=== PATIENT | female | born 1945 | race Caucasian/White ===

== ENCOUNTER 2020-11-30 19:33 | Inpatient (IN) | payer MEDICARE, MEDICAID, SELFPAY ==
[2020-11-30] VITALS (12 sets, daily range): BP systolic 102–128; BP diastolic 45–59; PULSE 71–81; RESP 16–20; TEMP 36.1–36.9; O2SAT 95–100; BMI 18.4
--- NOTE | 2020-11-30 19:43 | ED_ITS ---
HPI - Abdominal Pain General: Chief Complaint: Abdominal Pain Stated Complaint: abd pain/has colon cancer Time Seen by Provider: 11/30/20 19:38 Source: patient Mode of arrival: ambulatory Limitations: no limitations History of Present Illness: HPI narrative: 75-year-old female who has a history of colon cancer and had a colectomy done 2 months ago. She has an appointment with oncology at [place] tomorrow. She states she has been having pain for months. She states her pain is diffuse. She denies any vomiting or diarrhea. She denies any worsening improving factors. States pain is sharp in nature and rates it a 2 out of 10 currently Associated Symptoms: Denies chills, dysuria and fever(s) Review of Systems Const: Denies: fever(s), chills, body aches or change in appetite Eyes: Denies: blurry vision or eye discomfort ENMT: Denies: throat pain or dental pain Card: Denies: chest pain Resp: Denies: dyspnea GI: Reports: abdominal pain : Denies: dysuria Musc: Denies: neck pain or back pain Skin/Breast: Denies: rash Neuro: Denies: headache(s) Psych: Denies: depression Tunde/Lymph: Denies: easy bruising All/Imm: Denies: urticaria Physical Exam Const: COMMON NORMALS: no acute distress, patient oriented x3 and healthy appearing HENMT: COMMON NORMALS: normocephalic and atraumatic HEAD & SCALP: normocephalic and atraumatic Eye: COMMON NORMALS: Equal, round and reactive pupils present and EOMs intact bilaterally PUPIL: Yes Equal, round and reactive pupils present Neck/C-Spine: COMMON NORMALS: full ROM and supple Chest: COMMONS NORMALS: normal inspection of the chest and normal palpation of entire chest wall Resp: COMMON NORMALS: normal respiratory effort, No retractions, No use of accessory muscles and clear to auscultation bilaterally AUSCULTATION: clear to auscultation bilaterally Cardio: COMMON NORMALS: regular rate, regular rhythm and No murmurs present (Cardio) RATE: regular rate RHYTHM: regular rhythm GI: COMMON NORMALS: Normal to inspection, nondistended, normoactive bowel sounds present, Soft to palpation, non-tender and no masses PALPATION: Yes Soft to palpation OTHER: Colostomy in place no tenderness Extremity: COMMON NORMALS: normal to inspection and full ROM Neuro: COMMON NORMALS: patient oriented x3, moves all extremities and no focal motor deficits Psych: COMMON NORMALS: mental status grossly normal, Normal thought process present and cooperative THOUGHT PROCESS: Normal thought process present Skin: COMMON NORMALS: no rashes or lesions noted and no wounds GENERAL SKIN EXAM: no rashes or lesions noted Course Vital Signs: Vital signs: Vital Signs Temperature 97.6 F 11/30/20 23:39 Pulse Rate 71 11/30/20 23:39 Respiratory Rate 18 11/30/20 23:39 Blood Pressure 102/52 11/30/20 23:39 Pulse Oximetry 96 11/30/20 23:39 MDM - Abdominal Pain MDM Narrative: Medical decision making narrative: Katalina presents here with anemia along with a small bowel obstruction. She has a history of colon cancer and had a fairly recent colectomy. Did place an NG tube I spoke to hospitalist along with surgeon and will admit. Patient's vital signs have been stable here. Lab Data: Labs: Lab Results 11/30/20 11/30/20 11/30/20 Range/Units 20:07 20:07 20:34 WBC 17.9 H (4.0-10.0) 10^3/ uL RBC 3.06 L (4.1-5.3) 10^6/u L Hgb 6.5 L* (11.5-15.3) g/dL Hct 22.9 L (37.0-47.0) % MCV 74.8 L (81-99) fL MCH 21.2 L (28.0-34.0) pg MCHC 28.4 L (30.0-36.0) g/dL RDW 15.6 H (12.1-15.1) % Plt Count 478 H (130-400) 10^3/c mm MPV 9.0 (7.4-10.4) fL Neut % (Auto) 83.5 % Lymph % (Auto) 11.7 % [place] % (Auto) 4.1 % Eos % (Auto) 0.0 % Baso % (Auto) 0.2 % Neut # (Auto) 14.92 H (1.8-7.7) 10^3/u L Lymph # (Auto) 2.1 (0.8-4.8) 10^3/u L [place] # (Auto) 0.7 (0.2-0.9) 10^3/u L Eos # (Auto) 0.0 (0.0-0.8) 10^3/u L Baso # (Auto) 0.0 (0.0-0.1) 10^3/u L Nucleated RBC % (a uto) 0 % Nucleated RBCs # 0.0 /100WBC Sodium 132 L (136-145) mmol/L Potassium 4.6 (3.5-5.1) mmol/L Chloride 97 L (98-107) mmol/L Carbon Dioxide 19 L (22-29) mmol/L Anion Gap 20.6 H (5-19) BUN 22 (8-23) mg/dL Creatinine 1.1 H (0.5-0.9) mg/dL GFR Calculation Not Reportable Glucose 170 H (65-115) mg/dL Calculated Osmolal ity 281 L (285-295) mOsm/k g Calcium 9.3 (8.5-10.5) mg/dL Total Bilirubin 0.5 (0.15-1.2) mg/dL AST 19 (0-32) U/L ALT 14 (0-33) U/L Alkaline Phosphata se 102 (35-105) IU/L Total Protein 6.7 (6.6-8.7) g/dL Albumin 3.7 (3.5-5.2) g/dL Globulin 3.0 (1.3-4.6) g/dL Lipase 34 (13-60) U/L Blood Type B Positive Rho(D) Type Positive Antibody Screen Negative Crossmatch See Detail Imaging Data ^: CT Abd/Pel: Attestation: I personally reviewed and interpreted this imaging study as follows: Radiologist's impression: [facility] [address] [facility] [place] [address] CT Scan Report Signed Patient: Katalina Ann Unit #: [id number] : 1945 Age/Sex: 75 / F ADM Date: 11/30/20 Loc: ER Room/Bed: Attending Dr: Ordering Provider/Ordering MD: Woody Stephenson MD Date of Service: 11/30/20 Procedure(s): CT abdomen pelvis w con* [id number] Accession Number(s): [id number] Report Number: [id number] PROCEDURE INFORMATION: Exam: CT Abdomen And Pelvis With Contrast Exam date and time: 11/30/2020 8:37 PM Age: 75 years old Clinical indication: Nausea and vomiting; Abdominal pain; Localized; Lower; Prior surgery; Surgery type: Colostomy; Patient HX: Low abdomen pain with n/v. ; Additional info: Abd pain TECHNIQUE: Imaging protocol: Computed tomography of the abdomen and pelvis with intravenous contrast. Radiation optimization: All CT scans at this facility use at least one of these dose optimization techniques: automated exposure control; mA and/or kV adjustment per patient size (includes targeted exams where dose is matched to clinical indication); or iterative reconstruction. Contrast material: OMNI 300; Contrast volume: 75 ml; Contrast route: INTRAVENOUS (IV); COMPARISON: No relevant prior studies available. RADIATION DOSE METRICS: Total DLP (mGy-cm): 212.96 FINDINGS: Lungs: No significant abnormaility demonstrated. Mediastinal space: There is a large hiatal hernia present. Approximately half of the stomach is present within the hernia. The portion of the stomach within the hernia appears dilated. Liver: The liver is unremarkable in appearance. Gallbladder and bile ducts: There is sludge versus noncalcified gallstones in the dependent portion of the gallbladder. No associated biliary dilatation. Pancreas: The pancreas is normal in appearance. No pancreatic duct dilatation. Spleen: The spleen is normal in size and appearance. Adrenal glands: The adrenal glands appear within normal limits. Kidneys and ureters: Atrophy of the left kidney. There is a left percutaneous nephrostomy catheter present. No hydronephrosis. Left percutaneous nephrostomy noted. The right kidney and ureter are unremarkable. Stomach and bowel: Status post distal colectomy and colostomy. Multiple dilated small bowel loops with air-fluid levels. The distal small bowel has an empty, decompressed appearance. Findings are consistent with small bowel obstruction. No ischemic change or perforation noted. The exact point of obstruction is not identified. Appendix: No evidence of appendicitis. Intraperitoneal space: Mild ascites in the pelvis. Vasculature: The aorta is atherosclerotic. No aortic aneurysm. Lymph nodes: No pathologically enlarged lymph nodes are demonstrated. Urinary bladder: The urinary bladder is unremarkable in appearance. Reproductive: Heterogeneous, myomatous uterus noted. Bones/joints: No acute osseous abnormality. Soft tissues: Left mid abdominal colostomy. CT/CT abdomen pelvis w con* [id number] IMPRESSION: 1. Status post distal colectomy and colostomy. 2. Multiple dilated small bowel loops with air-fluid levels. The distal small bowel has an empty, decompressed appearance. Findings are consistent with small bowel obstruction. No ischemic change or perforation noted. 3. Mild ascites in the pelvis. 4. There is sludge versus noncalcified gallstones in the dependent portion of the gallbladder. No associated biliary dilatation. Discharge Plan Discharge Patient Disposition: Admitted As Inpatient Admit Provider: Disha Myrick Clinical Impression: Small bowel obstruction, Anemia Condition: Stable Coding Level of Care Code ED Pressure Controller for Chg Fwd Exam Comprehensive
[2020-11-30] MEDS: morphine 4 mg/mL SDV 1 mL IVP (20:07)
[2020-11-30] MEDS: ondansetron 2 mg/ML SDV 2 mL 4 MG IVP (20:08)
[2020-11-30 20:12] LABS: Basophils % 0.2 %; Hematocrit 22.9 % (37.0-47.0); Lymphocytes # 2.1 10^3/uL (0.8-4.8); Lymphocytes % 11.7 %; Mean Corpuscular HGB Conc 28.4 g/dL (30.0-36.0); Mean Corpuscular Hemoglobin 21.2 pg (28.0-34.0); Mean Corpuscular Volume 74.8 fL (81-99); Monocytes # 0.7 10^3/uL (0.2-0.9); Monocytes % 4.1 %; Neutrophils # 14.92 10^3/uL (1.8-7.7); Neutrophils % 83.5 %; Nucleated Red Blood Cells % 0 %; Platelet Count 478 10^3/cmm (130-400); Red Blood Count 3.06 10^6/uL (4.1-5.3); Red Cell Distribution Width 15.6 % (12.1-15.1); White Blood Count 17.9 10^3/uL (4.0-10.0)
[2020-11-30 20:18] LABS: Hemoglobin 6.5 g/dL (11.5-15.3)
[2020-11-30 20:33] LABS: Alanine Aminotransferase 14 U/L (0-33); Albumin Level 3.7 g/dL (3.5-5.2); Alkaline Phosphatase 102 IU/L (35-105); Anion Gap 20.6 (5-19); Aspartate Amino Transferase 19 U/L (0-32); Blood Urea Nitrogen 22 mg/dL (8-23); Calcium 9.3 mg/dL (8.5-10.5); Carbon Dioxide 19 mmol/L (22-29); Chloride 97 mmol/L (98-107); Glucose 170 mg/dL (65-115); Lipase 34 U/L (13-60); Osmolality Calculated 281 mOsm/kg (285-295); Potassium 4.6 mmol/L (3.5-5.1); Sodium 132 mmol/L (136-145); Total Bilirubin 0.5 mg/dL (0.15-1.2); Total Protein 6.7 g/dL (6.6-8.7)
[2020-11-30] MEDS: iodixanol 320 mg/mL 100mL Btl IV (20:51)
--- NOTE | 2020-11-30 21:21 | PC.NURSE ---
stool is positive for blood.
[2020-11-30] MEDS: LORazepam 2 mg/mL INJ 1 mL 1 MG IVP (22:34)
[2020-11-30] MEDS: cetacaine Spray 5 gm Can 1 SPRAY TOPICAL (22:34)
[2020-12-01] VITALS (7 sets, daily range): BP systolic 107–152; BP diastolic 52–73; PULSE 67–87; RESP 16–18; TEMP 36.6–37.3; O2SAT 94–100
--- NOTE | 2020-12-01 01:16 | P.HP_ITS ---
Providers/Chief Complaint Admitting Physician: Disha Myrick MD Chief Complaint: abd pain/has colon cancer History of Present Illness Katalina Ann is a 75 year old female who presented to the emergency room chief complaint of abdominal pain according to the emergency room records. She did not report any nausea or vomiting. No description of change in stool output. Patient has previously been seen at [place]. She is had colectomy and colostomy placement as well as nephrostomy tube placement. She indicated that she has a history of colon cancer but has not yet started on any chemotherapy. Indicated she was due to see her oncologist in the next day or so but because of the increasing pain in her abdomen presented here. Work-up in the emergency room revealed multiple dilated loops of small bowel with air-fluid levels consistent with small bowel obstruction. NG tube was placed under sedation. She is continued to be sedate or tired since then. I am not able to get any history directly from her but I did review records that were obtained from hospital stay in September at [facility] where she also presented with small bowel obstruction. ER records indicate no report of any fevers, chills, dysuria. Vitals have been stable here thus far. ED provider discussed case with Dr. Zhang who has agreed to see Mrs. Ann in consultation. Review of Systems General: Reports: ROS unobtainable due to mental status Medications/Allergies Home Medications Medication Instructions Recorded Confirmed Last Taken Type acetaminophen [Tylenol Extra 1,000 mg PO PRN 11/30/20 11/30/20 11/30/20 18:00 History Strength] amlodipine [Norvasc] 5 mg PO DAILY@11/30/20 11/30/20 11/29/20 History esomeprazole magnesium [Nexium] 20 - 40 mg PO DAILY PRN 11/30/20 11/30/20 Unknown History levothyroxine 75 mcg PO DAILY@11/30/20 11/30/20 11/30/20 History pravastatin 40 mg PO DAILY@11/30/20 11/30/20 11/29/20 History Allergies Allergy/AdvReac Type Severity Reaction Status Date / Time Sulfa (Sulfonamide Allergy Unknown Verified 11/30/20 19:42 Antibiotics) PFSH Acute PFSH: Medical History (Updated 12/01/20 @ 03:49 by Disha Myrick MD) Cancer of sigmoid colon Hiatal hernia Hypercholesterolemia Hypertension Hypothyroidism Protein calorie malnutrition Surgical History (Updated 12/01/20 @ 03:36 by Disha Myrick MD) History of abdominal surgery Multiple, related to malignancy History of colectomy Distal Nephrostomy status (~09/2020) Left-sided, placed secondary to obstructive lesion Status post colostomy (~09/2020) Transverse loop, done secondary to obstructive lesion Family History (Updated 12/01/20 @ 01:28 by Disha Myrick MD) Denies family history of Cancer Social History (Updated 12/01/20 @ 01:28 by Disha Myrick MD) Smoking and tobacco status: never smoked Alcohol intake: never Marital status: Supplemental [facility] Information: Above medical, surgical, family and social history is taken from records at [facility]. Patient is sedated and not able to provide specific information herself presently. Vitals/I&O/Wt Last Vital Signs Temp 97.6 F 11/30/20 23:39 Pulse 72 12/01/20 00:27 Resp 16 12/01/20 00:27 BP 107/52 12/01/20 00:27 Pulse Ox 96 12/01/20 00:27 11/30/20 11/30/20 12/01/20 14:59 22:59 06:59 Intake Total 0 / 0 350 / 350 Balance 0 / 0 350 / 350 Weight last 48 hrs Weight 50.349 kg Physical Exam Const: OTHER: Sedate after recent Ativan for NG tube placement, thin build, no acute distress though looks chronically ill HENMT: OTHER: Bitemporal wasting noted, dry mucous membranes Eye: OTHER: Pale conjunctiva, reactive pupils Neck/C-Spine: OTHER: Supple Resp: OTHER: Clear to auscultation bilaterally, no rales, rhonchi or wheezes noted, no accessory muscle use noted Cardio: OTHER: Regular rate and rhythm, no murmurs gallops or rubs. Pulses equal throughout GI: OTHER: Abdomen soft, colostomy noted with reddish-brown stool, thin. Tinkles and rushes noted throughout. Mild distention in the left lower quadrant compared to the remainder of the abdomen. Does not appear to be significantly tender during my examination. : OTHER: Normal external genitalia Back/Pelvis: OTHER: Left-sided nephrostomy tube noted to be in place with leg bag attached Extremity: NARRATIVE EXTREMITY EXAM: Thin, muscle wasting noted, no pitting edema or cyanosis Neuro: OTHER: Face symmetric, DTRs equal in the upper extremities Psych: OTHER: Sedate presently Skin: OTHER: Skin is dry, well-healing abdominal surgical incision, no large bruises or rashes evident Data : 11/30/20 20:07 11/30/20 20:07 Other Labs: Laboratory Last Values WBC 17.9 10^3/uL (4.0-10.0) H 11/30/20 20:07 RBC 3.06 10^6/uL (4.1-5.3) L 11/30/20 20:07 Hgb 6.5 g/dL (11.5-15.3) L* 11/30/20 20:07 Hct 22.9 % (37.0-47.0) L 11/30/20 20:07 MCV 74.8 fL (81-99) L 11/30/20 20:07 MCH 21.2 pg (28.0-34.0) L 11/30/20 20:07 MCHC 28.4 g/dL (30.0-36.0) L 11/30/20 20:07 RDW 15.6 % (12.1-15.1) H 11/30/20 20:07 Plt Count 478 10^3/cmm (130-400) H 11/30/20 20:07 MPV 9.0 fL (7.4-10.4) 11/30/20 20:07 Neut % (Auto) 83.5 % 11/30/20 20:07 Lymph % (Auto) 11.7 % 11/30/20 20:07 [place] % (Auto) 4.1 % 11/30/20 20:07 Eos % (Auto) 0.0 % 11/30/20 20:07 Baso % (Auto) 0.2 % 11/30/20 20:07 Neut # (Auto) 14.92 10^3/uL (1.8-7.7) H 11/30/20 20:07 Lymph # (Auto) 2.1 10^3/uL (0.8-4.8) 11/30/20 20:07 [place] # (Auto) 0.7 10^3/uL (0.2-0.9) 11/30/20 20:07 Eos # (Auto) 0.0 10^3/uL (0.0-0.8) 11/30/20 20:07 Baso # (Auto) 0.0 10^3/uL (0.0-0.1) 11/30/20 20:07 Nucleated RBC % (auto) 0 % 11/30/20 20:07 Nucleated RBCs # 0.0 /100WBC 11/30/20 20:07 Sodium 132 mmol/L (136-145) L 11/30/20 20:07 Potassium 4.6 mmol/L (3.5-5.1) 11/30/20 20:07 Chloride 97 mmol/L (98-107) L 11/30/20 20:07 Carbon Dioxide 19 mmol/L (22-29) L 11/30/20 20:07 Anion Gap 20.6 (5-19) H 11/30/20 20:07 BUN 22 mg/dL (8-23) 11/30/20 20:07 Creatinine 1.1 mg/dL (0.5-0.9) H 11/30/20 20:07 GFR Calculation Not Reportable 11/30/20 20:07 Glucose 170 mg/dL (65-115) H 11/30/20 20:07 Calculated Osmolality 281 mOsm/kg (285-295) L 11/30/20 20:07 Calcium 9.3 mg/dL (8.5-10.5) 11/30/20 20:07 Total Bilirubin 0.5 mg/dL (0.15-1.2) 11/30/20 20:07 AST 19 U/L (0-32) 11/30/20 20:07 ALT 14 U/L (0-33) 11/30/20 20:07 Alkaline Phosphatase 102 IU/L (35-105) 11/30/20 20:07 Total Protein 6.7 g/dL (6.6-8.7) 11/30/20 20:07 Albumin 3.7 g/dL (3.5-5.2) 11/30/20 20:07 Globulin 3.0 g/dL (1.3-4.6) 11/30/20 20:07 Lipase 34 U/L (13-60) 11/30/20 20:07 Blood Type B Positive 11/30/20 20:34 Rho(D) Type Positive 11/30/20 20:34 Antibody Screen Negative 11/30/20 20:34 Crossmatch See Detail 11/30/20 20:34 CT Abd/Pel: Radiologist's impression: FINDINGS: Lungs: No significant abnormaility demonstrated. Mediastinal space: There is a large hiatal hernia present. Approximately half of the stomach is present within the hernia. The portion of the stomach within the hernia appears dilated. Liver: The liver is unremarkable in appearance. Gallbladder and bile ducts: There is sludge versus noncalcified gallstones in the dependent portion of the gallbladder. No associated biliary dilatation. Pancreas: The pancreas is normal in appearance. No pancreatic duct dilatation. Spleen: The spleen is normal in size and appearance. Adrenal glands: The adrenal glands appear within normal limits. Kidneys and ureters: Atrophy of the left kidney. There is a left percutaneous nephrostomy catheter present. No hydronephrosis. Left percutaneous nephrostomy noted. The right kidney and ureter are unremarkable. Stomach and bowel: Status post distal colectomy and colostomy. Multiple dilated small bowel loops with air-fluid levels. The distal small bowel has an empty, decompressed appearance. Findings are consistent with small bowel obstruction. No ischemic change or perforation noted. The exact point of obstruction is not identified. Appendix: No evidence of appendicitis. Intraperitoneal space: Mild ascites in the pelvis. Vasculature: The aorta is atherosclerotic. No aortic aneurysm. Lymph nodes: No pathologically enlarged lymph nodes are demonstrated. Urinary bladder: The urinary bladder is unremarkable in appearance. Reproductive: Heterogeneous, myomatous uterus noted. Bones/joints: No acute osseous abnormality. Soft tissues: Left mid abdominal colostomy. CT/CT abdomen pelvis w con* [id number] IMPRESSION: 1. Status post distal colectomy and colostomy. 2. Multiple dilated small bowel loops with air-fluid levels. The distal small bowel has an empty, decompressed appearance. Findings are consistent with small bowel obstruction. No ischemic change or perforation noted. 3. Mild ascites in the pelvis. 4. There is sludge versus noncalcified gallstones in the dependent portion of the gallbladder. No associated biliary dilatation. A&P Assessment and plan (1) Small bowel obstruction: In a patient presenting with abdominal pain, continues to have some stool output noted in colostomy bag. NG tube was placed in the emergency room. I will note that records from [place] in September showed that she required EGD to accomplish adequate NG tube placement for decompression. Was treated at that time by Dr. Yomi Dan. Status: Acute (2) Anemia: Symptomatic with shortness of breath, last available comparative labs from October 09 showed hemoglobin of 10.8, transfusion initiated in the emergency room Status: Acute Qualifiers: Anemia type: iron deficiency Iron deficiency anemia type: chronic blood loss Qualified Code(s): D50.0 - Iron deficiency anemia secondary to blood loss (chronic) (3) Cancer of sigmoid colon: Details are not clear. Patient has previously been treated in [place]. Her oncologist is Dr. Jorge Ortiz. She denied being on any chemotherapy with emergency room providers. 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 Status: Chronic Qualifiers: Protein-calorie malnutrition severity: severe Qualified Code(s): E43 - Unspecified severe protein-calorie malnutrition (7) Hypercholesterolemia: Chronically on statin therapy Status: Chronic (8) Hypertension: Chronically on amlodipine Status: Chronic Qualifiers: Hypertension type: essential hypertension Qualified Code(s): I10 - Essential (primary) hypertension (9) Hypothyroidism: Chronically on levothyroxine Status: Chronic Qualifiers: Hypothyroidism type: unspecified Qualified Code(s): E03.9 - Hypothyroidism, unspecified Additional A&P Information Hyperglycemia without a history of diabetes Leukocytosis with slight left shift Dehydration with hyponatremia Inpatient admission Continue transfusion Continue NG tube to low intermittent suction Dr. Zhang will see patient in the morning Check urinalysis Repeat white count in the morning, holding any antibiotic treatment presently given no definitive source and stable vital signs IV fluids tonight Recheck electrolytes in the morning N.p.o. except for sips and chips Home medications are currently held Monitor blood pressure for need to add as needed medication Check hemoglobin A1c IV H2 zora SCDs for DVT prophylaxis, pharmacological prophylaxis contraindicated in setting of anemia with heme positive stool, requiring transfusion and known colon cancer Supportive care otherwise I have requested records from Dr. Yomi Dan and Dr. Jorge Ortiz whom she has seen previously When patient is awake need to see if we can discern CODE STATUS. At this point in time I have entered full code as I am unable to converse with her presently to discern further Attestations Medical Necessity Statement*: Anticipated stay greater than 2 midnights in a patient with evidence of small bowel obstruction anemia requiring transfusion. She has had multiple abdominal surgeries and currently with colostomy and nephrostomy tube. Cancer as noted above. Coding Level of Care Code Acute Gauge And Instrument Inspector for g Fwd Diagnoses Small bowel obstruction K56.609 Anemia D50.0 Anemia type: iron deficiency Iron deficiency anemia type: chronic blood loss Cancer of sigmoid colon C18.7 Status post colostomy Z93.3 Nephrostomy status Z93.6 Protein calorie malnutrition E43 Protein-calorie malnutrition severity: severe Hypercholesterolemia E78.00 Hypertension I10 Hypertension type: essential hypertension Hypothyroidism E03.9 Hypothyroidism type: unspecified
[2020-12-01 05:34] LABS: Basophils # 0.1 10^3/uL (0.0-0.1); Basophils % 0.5 %; Eosinophils % 0.1 %; Hematocrit 34.1 % (37.0-47.0); Hemoglobin 10.8 g/dL (11.5-15.3); Lymphocytes # 1.7 10^3/uL (0.8-4.8); Mean Corpuscular HGB Conc 31.7 g/dL (30.0-36.0); Mean Corpuscular Hemoglobin 25.3 pg (28.0-34.0); Mean Corpuscular Volume 79.9 fL (81-99); Mean Platelet Volume 8.8 fL (7.4-10.4); Monocytes # 0.7 10^3/uL (0.2-0.9); Monocytes % 6.1 %; Neutrophils % 77.1 %; Nucleated Red Blood Cells % 0 %; Platelet Count 324 10^3/cmm (130-400); Red Blood Count 4.27 10^6/uL (4.1-5.3); Red Cell Distribution Width 18.9 % (12.1-15.1); White Blood Count 10.9 10^3/uL (4.0-10.0)
[2020-12-01 05:50] LABS: Protein Urine 3+ (Negative); Urine Appearance Cloudy (CLEAR); Urine Color Yellow (Yellow); pH Urine 8 (5-7)
[2020-12-01 05:51] LABS: Add Urine Culture? Yes; Add Urine Microscopic? YES; Bacteria Urine 3+ /hpf; Bilirubin Urine Neg (Negative); Blood Urine 3+ (Negative); Glucose Urine UA Norm (Normal); Ketones Urine Negative (Negative); Leukocyte Esterase Urine 2+ (Negative); Nitrate Urine Negative (Negative); Sulfosalicylic Acid Urine Positive (Negative); Urobilinogen Urine Norm (Negative); WBC Urine >100 /hpf (0-5)
[2020-12-01 05:52] LABS: INR 0.94 (0.8-1.2)
[2020-12-01 05:53] LABS: Partial Thromboplastin Time 27.2 SECONDS (23.9-36.7)
[2020-12-01] MEDS: famotidine 20 mg/2 mL INJ IVP (05:53)
[2020-12-01] MEDS: sodium chloride 0.9% 1,000 ML 75 ML IV ×2 (05:53→22:10)
[2020-12-01 06:00] LABS: Estmated Average Glucose 91; Hemoglobin A1C 4.8 % (4.0-6.0)
--- NOTE | 2020-12-01 06:00 | XR_ITS ---
WS: [id number] KUB, 12/01/2020 Clinical Data: SBO/NGT Comparison: CT abdomen and pelvis, 11/30/2020 Findings: The left percutaneous nephrostomy catheter is seen. The nasogastric tube appears in barely within the stomach. There are dilated small bowel loops in the left upper quadrant. The distal small bowel appe ars to be normal. There is fecal material in the colon. There is a left ostomy. There is contrast material in the bladder from a CT abdomen pelvis. XR/XR KUB portable [id number] Impression: 1. Dilated left upper quadrant small bowel loops which may indicate a severe il eus or partial obstruction. 2. Nasogastric tube barely within the stomach and left nephrostomy catheter in good position.
[2020-12-01 06:13] LABS: Anion Gap 15.2 (5-19); Blood Urea Nitrogen 21 mg/dL (8-23); Calcium 8.8 mg/dL (8.5-10.5); Carbon Dioxide 23 mmol/L (22-29); Chloride 101 mmol/L (98-107); Glucose 108 mg/dL (65-115); Osmolality Calculated 284 mOsm/kg (285-295); Phosphorus 3.8 mg/dL (2.5-4.5); Potassium 4.2 mmol/L (3.5-5.1); Sodium 135 mmol/L (136-145)
[2020-12-01 09:26] LABS: Ferritin 11 ng/mL (15-150); Iron 68 ug/dL (37-145); Total Iron Binding Capacity 357 mcg/dl; Unsaturated Iron Binding 289 ug/dL (112-347)
--- NOTE | 2020-12-01 09:49 | PC.CHAP ---
Pastoral Care Encounter/Spiritual Assessment Type of Contact [] Declined gamma ray operator visit [] Patient/Family/Request visit [] Outpatient visit [] Follow-up visit [] Physician referral [] Code/Alert [x] Routine visit [] Staff referral [] Actively dying [] Patient sleeping [] Family support [] [] Out of room [] Palliative care [] [] Receiving care in room [] Pre-surgical visit [] Trauma [] Long length of stay [] ICU visit [] Other: Relational/Emotional Strength [] Patient feels connected with others/family/visitors/staff [] Distress [] Loneliness/isolation [] Abandonment Spirituality of Patient [x] Person of Chelsey [] Attends [employer] of their [place] [] Believes in Prayer [] Reads Bible or Protestant materials [] There are Spiritual issues to be addressed Gear Grinding Machine Operator Interventions [] Prayer [] Active listening [] Non-anxious presence [] Spiritual/emotional support [] Crisis/trauma care [] Spiritual counseling [] Bereavement support [] Provided bereavement packet [] Provided Bible/devotional materials [] Provided toy/stuffed animal, coloring book to patient or family member [] Provided Communion [] Anointing/Mobile [] Salvation [] Completed spiritual assessment [] Other: Impact on Illness or Injury [] Angry [] Fearful [] Anxious [] Often cries [] Exhaustion [] Unable to work [] Unable to attend buddhist [] Unable to walk/stand [] Unable to read [] Unable to drive [] Unable to eat/drink [] Unable to sleep [] Unable to be with family [] Patient intubated [] Other: Summary Time spent with patient 5 min
[2020-12-01] MEDS: pantoprazole DR 40 mg Tablet PO ×2 (11:32→19:09)
[2020-12-01] MEDS: sucralfate 1 gm/10 mL Oral Liq UDC PO ×3 (11:32→22:10)
[2020-12-01] MEDS: cefTRIAXone 1,000 MG in sodium chloride 0.9% (plus) 50 ML 100 MG IV (11:32)
--- NOTE | 2020-12-01 12:32 | P.PN_ITS ---
Subjective Subjective: Interval history: This morning patient is much more alert, oriented, answers most questions appropriate, follows all commands, she tells me that she was diagnosed with colon cancer roughly a year ago, had a colectomy, has a colostomy in place, she elected for for no chemotherapy after, but about a month ago she was told after a PET scan was performed that she has had reoc currence of the cancer in the same location that it was resected, she denies any discussion of metastatic disease, she tells me that she had elected for chemotherapy, but she has put it off for some time. She tells me that she came to [facility], as she was out with the family, when she started me started to feel short of breath, weak, developing abdominal pain, no chest pain, no palpitations, but feeling short of breath, no hemoptysis. She tells me that over the period of few hours, her abdominal pain worsened, and her colostomy output decreased. Denies a history of DVTs or PEs in the past. Is not on any blood thinners. Vitals/I&O/Wt Last Vital Signs Temp 98.4 F 12/01/20 11:23 Pulse 73 12/01/20 11:23 Resp 18 12/01/20 11:23 BP 122/67 12/01/20 11:23 Pulse Ox 100 12/01/20 11:23 11/30/20 12/01/20 12/01/20 22:59 06:59 14:59 Intake Total 0 / 0 700 / 700 Output Total 825 / 825 Balance 0 / 0 -125 / -125 Weight last 48 hrs Weight 50.349 kg Physical Exam Const: COMMON NORMALS: no acute distress and patient oriented x3 HENMT: COMMON NORMALS: normocephalic HEAD & SCALP: normocephalic Neck/C-Spine: COMMON NORMALS: no JVD Resp: COMMON NORMALS: normal respiratory effort, No retractions, No use of accessory muscles and clear to auscultation bilaterally AUSCULTATION: clear to auscultation bilaterally Cardio: COMMON NORMALS: no JVD, regular rate, regular rhythm, S1 normal heart sound present and S2 normal heart sound present RATE: regular rate RHYTHM: regular rhythm HEART SOUNDS: S1 normal heart sound present and S2 normal heart sound present GI: COMMON NORMALS: Normal to inspection, nondistended, normoactive bowel sounds present, Soft to palpation, non-tender, No hepatosplenomegaly present, no masses and no bruits PALPATION: Yes Soft to palpation and Yes No hepatosplenomegaly present OTHER: Colostomy bag in place Extremity: COMMON NORMALS: capillary refill normal, no clubbing, cyanosis or edema, no calf tenderness and no pedal edema Neuro: COMMON NORMALS: patient oriented x3 Psych: COMMON NORMALS: mental status grossly normal Data : 12/01/20 05:26 12/01/20 05:26 A&P Assessment and plan (1) Small bowel obstruction: -Possibly related to adhesions and OR reoccurrence of malignancy -Status post colectomy resection of sigmoid colon cancer a year ago, with PET scan evidence of recurrence, no known metastatic disease, will await records to confirm -CT scan of the abdomen pelvis shows: -1. Status post distal colectomy and colostomy. 2. Multiple dilated small bowel loops with air-fluid levels. The distal small bowel has an empty, decompressed appearance. Findings are consistent with small bowel obstruction. No ischemic change or perforation noted. -Colostomy output has decreased -NG tube output is 300 cc -Awaiting records from [place] [facility] -Receiving IV fluids -General surgery on consult -Serial abdominal exams, KUBs -In addition I have rechecked the patient's oncologist at [facility], Dr. Jorge Ortiz Status: Acute (2) Anemia: -Seems like acute on chronic anemia, she tells me that she was transfused with blood roughly a year ago when she was in [place] -Hemoglobin was 6.8 on admission, received a unit PRBC -Iron studies show severe iron deficiency anemia -We will start on IV Venofer here -Continue Protonix, Carafate just in case 30 minutes related to slow GI bleed, anticoagulation currently cannot indicated given anemia -Recheck hemoglobin in the afternoon Status: Acute Qualifiers: Anemia type: iron deficiency Iron deficiency anemia type: chronic blood loss Qualified Code(s): D50.0 - Iron deficiency anemia secondary to blood loss (chronic) (3) Cancer of sigmoid colon: -Status post sigmoid resection -Now according to patient with evidence of reoccurrence on PET scan, no evidence of metastatic disease -Did have complaints of sudden weakness and shortness of breath, not requiring any oxygen, no chest pain -But given history of cancer, no evidence of recurrence, need to rule out pulmonary emboli, will order CT angiogram of the chest Status: Chronic (4) Status post colostomy: Done in early September Status: Chronic (5) Nephrostomy status: -Placed in early September, left-sided -Not clear what was done about this obstructive lesion, not clear about the exact etiology -We will await records Status: Chronic (6) Protein calorie malnutrition: Severe, 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 Status: Chronic Qualifiers: Protein-calorie malnutrition severity: severe Qualified Code(s): E43 - Unspecified severe protein-calorie malnutrition (7) Hypercholesterolemia: Chronically on statin therapy Status: Chronic (8) Hypertension: Chronically on amlodipine Status: Chronic Qualifiers: Hypertension type: essential hypertension Qualified Code(s): I10 - Essential (primary) hypertension (9) Hypothyroidism: Chronically on levothyroxine Status: Chronic Qualifiers: Hypothyroidism type: unspecified Qualified Code(s): E03.9 - Hypothyroidism, unspecified (10) Urinary tract infection: Continue Rocephin Status: Acute Additional A&P Information Hyperglycemia without a history of diabetes Leukocytosis with slight left shift Dehydration with hyponatremia SCDs for DVT prophylaxis, pharmacological prophylaxis contraindicated in setting of anemia with heme positive stool, requiring transfusion and known colon cancer Supportive care otherwise I have requested records from Dr. Yomi Dan and Dr. Jorge Ortiz whom she has seen previously Confirmed with patient she is a full code Attestations Medical Necessity Statement*: Patient requires hospitalization for small bowel obstruction, acute on chronic anemia, deconditioning Coding Level of Care Code Acute Rechecker for Chg Fwd Diagnoses Small bowel obstruction K56.609 Anemia D50.0 Anemia type: iron deficiency Iron deficiency anemia type: chronic blood loss Cancer of sigmoid colon C18.7 Status post colostomy Z93.3 Nephrostomy status Z93.6 Protein calorie malnutrition E43 Protein-calorie malnutrition severity: severe Hypercholesterolemia E78.00 Hypertension I10 Hypertension type: essential hypertension Hypothyroidism E03.9 Hypothyroidism type: unspecified Urinary tract infection N39.0
--- NOTE | 2020-12-01 12:33 | CTR_ITS ---
PROCEDURE INFORMATION: Exam: CT Angiography Chest With Contrast Exam date and time: 12/01/2020 4:17 PM Age: 75 years old Clinical indication: Shortness of breath TECHNIQUE: Imaging protocol: Computed tomographic angiography of the chest with intravenous contrast. 3D rendering (Not supervised by radiologist): MIP and/or 3D reconstructed images were created by the technologist. Radiation optimization: All CT scans at this facility use at least one of these dose optimization techniques: automated exposure control; mA and/or kV adjustment per patient size (includes targeted exams where dose is matched to clinical indication); or iterative reconstruction. Contrast material: OMNI 350; Contrast volume: 65 ml; Contrast route: INTRAVENOUS (IV); COMPARISON: No relevant prior studies available. RADIATION DOSE METRICS: Total DLP (mGy-cm): 423.2 FINDINGS: Tubes, catheters and devices: NG tube with tip in the distal gastric body. Pulmonary arteries: Normal. No pulmonary emboli. Aorta: Unremarkable. No aortic aneurysm. No aortic dissection. Lungs: 4 mm nodule in the right upper lobe, image 123, series 2. 3 mm nodule in the right upper lobe, image 169. 3 mm nodules in the right upper lobe, image 171. 3 mm nodule in the right upper lobe, image 197. 3 mm nodule in the right upper lobe, image 218. 4 mm nodule in the right upper lobe, image 223. 4 mm nodule in the right middle lobe, image 327. 3 mm nodules in the left upper lobe, images 138 and 134. 3 mm nodule in the left lower lobe, image 185. 3 mm nodule in the left lower lobe, image 257. 4 mm nodule in the left lower lobe, image 331. Pleural space: Trace right pleural effusion. Heart: Unremarkable. No cardiomegaly. No pericardial effusion. Mediastinal space: Large hiatal/gastric hernia in the lower mediastinum. Lymph nodes: Unremarkable. No enlarged lymph nodes. Gallbladder and bile ducts: Cholelithiasis. Kidneys and ureters: Atrophic left kidney. Bones/joints: Mild superior T5 compression fracture. Central depression of the superior T12 endplate. Soft tissues: Unremarkable. CT/CT angio chest PE protcl [id number] IMPRESSION: 1. No evidence for pulmonary embolus. 2. Trace right pleural effusion. 3. Multiple pulmonary nodules measuring up to 4 mm. For patients at low risk (minimal or absent history of smoking and of other known risk factors), no routine follow-up is indicated. For patients at high risk (history of smoking or of other known risk factors), consider optional CT Chest at 12 months. (Reference: Phyllis) 4. Age indeterminate mild compression of T5 and central endplate depression of T12. References: Phyllis Fox et al. Guidelines for Management of Incidental Pulmonary Nodules Detected on CT Images: From the Fleischner Society 2017. Radiology. 2017;284(1):228-243. Radiation Dose CTDIVOL = (mGy): DLP = 423.2 (mGy-cm)
--- NOTE | 2020-12-01 16:53 | P.CONIM_ITS ---
Providers/Reason For Consult Consulting Physican/Specialty*: Saurabh Orozco MD Reason for Consult*: Small bowel obstruction Attending Physician: Saurabh Orozco MD History of Present Illness History of Present Illness Katalina Ann is a 75 year old female who had a colectomy with colostomy and nephrostomy tube placement for colon cancer at [facility]. Patient was due to start chemotherapy but presented to the ER last night with complaints of abdominal pain, nausea and vomiting with CT scan showing air-fluid levels consistent with small bowel obstruction. Since then patient states that she feels hungry but also has some abdominal pain. As per discussion with the oncologist by the hospitalist, patient does not have any evidence of metastatic disease Review of Systems General: Reports: 10 or more systems reviewed and unremarkable except in HPI and below Meds/Allergies Home Medications and Allergies Home Medications Medication Instructions Recorded Confirmed Last Taken Type acetaminophen [Tylenol Extra 1,000 mg PO PRN 11/30/20 11/30/20 11/30/20 18:00 History Strength] amlodipine [Norvasc] 5 mg PO DAILY@11/30/20 11/30/20 11/29/20 History esomeprazole magnesium [Nexium] 20 - 40 mg PO DAILY PRN 11/30/20 12/01/20 Unknown History levothyroxine 75 mcg PO DAILY@11/30/20 12/01/20 11/30/20 History pravastatin 40 mg PO DAILY@11/30/20 11/30/20 11/29/20 History Allergies Allergy/AdvReac Type Severity Reaction Status Date / Time Sulfa (Sulfonamide Allergy Unknown Verified 11/30/20 19:42 Antibiotics) Current Medications Current Medications Generic Name Dose Route Start Last Admin Trade Name Freq PRN Reason Stop Dose Admin Sodium Chloride 1,000 mls @ 75 mls/hr 12/01/20 03:45 12/01/20 05:53 Sodium Chloride 0.9% IV 75 mls/hr .[id number] ANA Administration Ceftriaxone Sodium 1,000 mg/ 50 mls @ 100 mls/hr 12/01/20 10:00 12/01/20 11:32 Sodium Chloride IV 100 mls/hr Q24H ANA Administration Protocol Pantoprazole Sodium 40 mg 12/01/20 09:00 12/01/20 11:[address] 40 Mg Tablet PO 40 mg BID ANA Administration Sucralfate 1 gm 12/01/20 11:00 12/01/20 11:32 Sucralfate 1 Gm/10 Ml Oral Liq Udc PO 1 gm AC&BEDTIME ANA Administration PFSH Acute PFSH: Medical History Cancer of sigmoid colon Hiatal hernia Hypercholesterolemia Hypertension Hypothyroidism Protein calorie malnutrition Surgical History History of abdominal surgery Multiple, related to malignancy History of colectomy Distal Nephrostomy status (~09/2020) Left-sided, placed secondary to obstructive lesion Status post colostomy (~09/2020) Transverse loop, done secondary to obstructive lesion Family History Denies family history of Cancer Social History Smoking and tobacco status: never smoked Alcohol intake: never Marital status: Vitals/I&O/Wt Last Vital Signs Temp 98.4 F 12/01/20 16:00 Pulse 87 12/01/20 16:00 Resp 18 12/01/20 16:00 BP 136/66 12/01/20 16:00 Pulse Ox 100 12/01/20 16:00 12/01/20 12/01/20 12/01/20 06:59 14:59 22:59 Intake Total 700 / 700 Output Total 825 / 825 Balance -125 / -125 Weight last 48 hrs Weight 111 lb Physical Exam Narrative: EXAM NARRATIVE: HEENT: Normocephalic Eye: Sclera /conjunctiva normal Respiratory and chest: Bilateral clear breath sounds on auscultation Cardiovascular: Normal S1 and S2 heart sounds Abdomen: Soft to palpation, well-healed midline scar, tender right lower quadrant, colostomy pink, no significant output, NG tube to low intermittent suction Neurological: Oriented to place person and time Skin: Intact, no lesions appreciated on gross exam A&P Assessment and plan (1) Small bowel obstruction: 75-year-old female status post transverse loop colostomy, colectomy for co bryanna cancer who now has small bowel obstruction. I reviewed the CT scan which showed distended small bowel loops with air-fluid levels and decompressed distal small bowel. Patient has a large amount of stool within the transverse colon. NG tube to low abdomen suction Abdominal series in the morning [place] to have ice chips Enema through the ostomy tonight Status: Acute Coding Level of Care Code Acute Railroad Firer/Fireman for Chg Fwd Diagnoses Small bowel obstruction K56.609
[2020-12-01] MEDS: iohexol 350 mg/mL 100 mL Btl IV (16:58)
[2020-12-01] MEDS: iron sucrose 200 MG in sodium chloride 0.9% (100 ml) 100 ML 220 MG IV (19:09)
[2020-12-01 20:31] LABS: Basophils # 0.1 10^3/uL (0.0-0.1); Basophils % 0.5 %; Eosinophils % 0.2 %; Hematocrit 30.5 % (37.0-47.0); Hemoglobin 9.4 g/dL (11.5-15.3); Lymphocytes # 2.8 10^3/uL (0.8-4.8); Lymphocytes % 26.6 %; Mean Corpuscular HGB Conc 30.8 g/dL (30.0-36.0); Mean Corpuscular Hemoglobin 24.8 pg (28.0-34.0); Mean Corpuscular Volume 80.5 fL (81-99); Mean Platelet Volume 8.8 fL (7.4-10.4); Monocytes # 0.6 10^3/uL (0.2-0.9); Monocytes % 5.9 %; Neutrophils # 6.99 10^3/uL (1.8-7.7); Neutrophils % 66.5 %; Nucleated Red Blood Cells % 0 %; Platelet Count 320 10^3/cmm (130-400); Red Blood Count 3.79 10^6/uL (4.1-5.3); Red Cell Distribution Width 18.9 % (12.1-15.1); White Blood Count 10.5 10^3/uL (4.0-10.0)
[2020-12-02] VITALS (9 sets, daily range): BP systolic 104–142; BP diastolic 53–90; PULSE 69–86; RESP 13–18; TEMP 36.5–37.2; O2SAT 92–97
[2020-12-02 05:16] LABS: Basophils % 0.4 %; Eosinophils % 0.1 %; Hematocrit 29.7 % (37.0-47.0); Hemoglobin 9.1 g/dL (11.5-15.3); Lymphocytes # 1.7 10^3/uL (0.8-4.8); Lymphocytes % 15.3 %; Mean Corpuscular HGB Conc 30.6 g/dL (30.0-36.0); Mean Corpuscular Hemoglobin 24.9 pg (28.0-34.0); Mean Corpuscular Volume 81.4 fL (81-99); Mean Platelet Volume 8.9 fL (7.4-10.4); Monocytes # 0.7 10^3/uL (0.2-0.9); Monocytes % 5.9 %; Neutrophils # 8.58 10^3/uL (1.8-7.7); Neutrophils % 77.9 %; Nucleated Red Blood Cells % 0 %; Platelet Count 315 10^3/cmm (130-400); Red Blood Count 3.65 10^6/uL (4.1-5.3); Red Cell Distribution Width 19.2 % (12.1-15.1)
[2020-12-02 05:28] LABS: Alanine Aminotransferase 16 U/L (0-33); Albumin Level 2.9 g/dL (3.5-5.2); Alkaline Phosphatase 78 IU/L (35-105); Anion Gap 13.5 (5-19); Aspartate Amino Transferase 16 U/L (0-32); Blood Urea Nitrogen 17 mg/dL (8-23); Calcium 8.3 mg/dL (8.5-10.5); Carbon Dioxide 22 mmol/L (22-29); Chloride 105 mmol/L (98-107); Globulin 2.7 g/dL (1.3-4.6); Glucose 97 mg/dL (65-115); Osmolality Calculated 285 mOsm/kg (285-295); Phosphorus 3.1 mg/dL (2.5-4.5); Potassium 3.5 mmol/L (3.5-5.1); Sodium 137 mmol/L (136-145); Total Bilirubin 0.8 mg/dL (0.15-1.2); Total Protein 5.6 g/dL (6.6-8.7)
--- NOTE | 2020-12-02 05:49 | XR_ITS ---
WS: [id number] Portable AP upright chest, 12/02/2020 Clinical Data: NG tube placement confirmation Comparison: None. Findings: The nasogastric tube has been inserted but it barely enters the fundus of the stomach. The heart and lungs show no acute change. XR/XR chest 1V portable [id number] Impression: Nasogastric tube barely enters fundus of the stomach.
--- NOTE | 2020-12-02 06:00 | XR_ITS ---
WS: [id number] Abdomen series, Flat and upright 12/02/2020 Clinical Data: sbo Comparison: KUB, 12/01/2020 Findings: No free air is seen beneath the diaphragms. No abnormal intra-abdominal masses or calcifica tions are seen. The small bowel loops show a decrease in diameter. There is tear air within the small bowel and colon. The left nephrostomy catheter remains in position. There is an ostomy in the left s kareen of the abdomen. The nasogastric tube barely enters the fundus of the stomach. There is contrast m aterial in the bladder from the patient's CT abdomen pelvis. XR/XR abdomen min 2V [id number] Impression: 1.Decrease in small bowel air in left upper quadrant which probably represents an improvement in the patient's severe ileus or partial small bowel obstruction . 2. No change in position of the nasogastric tube and left percutaneous nephrost travis catheter.
[2020-12-02] MEDS: sucralfate 1 gm/10 mL Oral Liq UDC PO ×3 (06:16→20:18)
[2020-12-02] MEDS: cefTRIAXone 1,000 MG in sodium chloride 0.9% (plus) 50 ML 100 MG IV (10:38)
[2020-12-02] MEDS: pantoprazole DR 40 mg Tablet PO ×2 (10:38→18:39)
[2020-12-02] MEDS: morphine 4 mg/mL SDV 1 mL 2 MG IVP ×2 (12:31→18:44)
--- NOTE | 2020-12-02 13:03 | P.PN_ITS ---
Subjective Subjective: Interval history: Patient has some right lower quadrant pain, ostomy started functioning, pulled out the NG tube on 2 occasions. Denies any nausea or vomiting Vitals/I&O/Wt Last Vital Signs Temp 98.6 F 12/02/20 12:00 Pulse 76 12/02/20 12:00 Resp 14 12/02/20 12:31 BP 111/61 12/02/20 12:00 Pulse Ox 95 12/02/20 12:31 12/01/20 12/02/20 12/02/20 22:59 06:59 14:59 Intake Total 1000 / 1050 Balance 1000 / 1050 Weight last 48 hrs Weight 111 lb Physical Exam Narrative: EXAM NARRATIVE: Abdomen: Soft, nondistended, minimally tender, right lower quadrant, ostomy functioning Data : 12/02/20 04:31 12/02/20 04:31 Micro: Microbiology 12/01/20 05:15 Urine Culture - Preliminary Urine,Clean Catch Gram Negative Rods 12/01/20 06:42 Occult Blood (FIT) - Final Stool - Stool Aspirate A&P Assessment and plan (1) Small bowel obstruction: 35-year-old female status post transverse colostomy with small bowel obstruction. Patient hemodynamically stable with no evidence of peritonitis. Her ostomy is now functioning Start clear liquid diet 1 bottle magnesium citrate today Lactulose 15 cc p.o. twice daily Ambulate with PT Lovenox 40 mg subcu daily for DVT prophylaxis Status: Acute Attestations Medical Necessity Statement*: Small bowel obstruction requiring continued inpatient stay, appears to be resolving Coding Level of Care Code Acute Cook Ice Cream for [facility] Diagnoses Small bowel obstruction K56.609
--- NOTE | 2020-12-02 16:08 | PM.PN ---
Subjective Subjective: Interval history: This morning patient was examined, she tells me that she would like to try to eat something more substantial, she is having increased output from her colostomy bag, she is feeling better Vitals/I&O/Wt Last Vital Signs Temp 98.3 F 12/02/20 15:18 Pulse 86 12/02/20 15:18 Resp 17 12/02/20 15:18 BP 104/53 12/02/20 15:18 Pulse Ox 92 12/02/20 15:18 12/02/20 12/02/20 12/02/20 06:59 14:59 22:59 Output Total 50 / 50 Balance -50 / -50 Weight last 48 hrs Weight 50.349 kg Physical Exam Const: COMMON NORMALS: no acute distress and patient oriented x3 HENMT: COMMON NORMALS: normocephalic HEAD & SCALP: normocephalic Neck/C-Spine: COMMON NORMALS: no JVD Resp: COMMON NORMALS: normal respiratory effort, No retractions, No use of accessory muscles and clear to auscultation bilaterally AUSCULTATION: clear to auscultation bilaterally Cardio: COMMON NORMALS: no JVD, regular rate, regular rhythm, S1 normal heart sound present and S2 normal heart sound present RATE: regular rate RHYTHM: regular rhythm HEART SOUNDS: S1 normal heart sound present and S2 normal heart sound present GI: COMMON NORMALS: Normal to inspection, nondistended, normoactive bowel sounds present, Soft to palpation, non-tender, No hepatosplenomegaly present, no masses and no bruits PALPATION: Yes Soft to palpation and Yes No hepatosplenomegaly present OTHER: Colostomy bag, with stool in the pouch Extremity: COMMON NORMALS: capillary refill normal, no clubbing, cyanosis or edema, no calf tenderness and no pedal edema Neuro: COMMON NORMALS: patient oriented x3 Psych: COMMON NORMALS: mental status grossly normal Data : 12/02/20 04:31 12/02/20 04:31 Micro: Microbiology 12/01/20 05:15 Urine Culture - Preliminary Urine,Clean Catch Gram Negative Rods 12/01/20 06:42 Occult Blood (FIT) - Final Stool - Stool Aspirate A&P Assessment and plan (1) Small bowel obstruction: related to adhesions -Status post colectomy resection of sigmoid colon cancer a year ago, with PET scan evidence of recurrence, no known metastatic disease -Subsequently had resection of recurrent mass, adhered to pelvic wall, with lysis of adhesions -Currently in the process of undergoing chemotherapy -CT scan of the abdomen pelvis shows: -1. Status post distal colectomy and colostomy. 2. Multiple dilated small bowel loops with air-fluid levels. The distal small bowel has an empty, decompressed appearance. Findings are consistent with small bowel obstruction. No ischemic change or perforation noted. -Colostomy output has decreased -NG tube output is 300 cc, patient removed NGT tube -Clear liquid -Receiving IV fluids -General surgery on consult -Serial abdominal exams, KUBs -In addition I have rechecked the patient's oncologist at [facility], Dr. Jorge Ortiz Status: Acute (2) Anemia: -Seems like acute on chronic anemia, she tells me that she was transfused with blood roughly a year ago when she was in [place] -Hemoglobin was 6.8 on admission, received a unit PRBC -Iron studies show severe iron deficiency anemia -Continue IV Venofer here -Continue Protonix, Carafate just in case 30 minutes related to slow GI bleed, anticoagulation currently cannot indicated given anemia -Serial hemoglobins Status: Acute Qualifiers: Anemia type: iron deficiency Iron deficiency anemia type: chronic blood loss Qualified Code(s): D50.0 - Iron deficiency anemia secondary to blood loss (chronic) (3) Cancer of sigmoid colon: -Status post sigmoid resection -Now according to patient with evidence of reoccurrence on PET scan, no evidence of metastatic disease -Subsequently have resection of mass at anastomosis site, adherent to the pelvic wall, with lysis of adhesions -Did have complaints of sudden weakness and shortness of breath, not requiring any oxygen, no chest pain -But given history of cancer, no evidence of recurrence, need to rule out pulmonary emboli, will order CT angiogram of the chest, CT angiogram of the chest negative for PE Status: Chronic (4) Status post colostomy: Done in early September Status: Chronic (5) Nephrostomy status: -Placed in early September, left-sided -Not clear what was done about this obstructive lesion, not clear about the exact etiology -We will await records Status: Chronic (6) Protein calorie malnutrition: Severe, 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 Status: Chronic Qualifiers: Protein-calorie malnutrition severity: severe Qualified Code(s): E43 - Unspecified severe protein-calorie malnutrition (7) Hypercholesterolemia: Chronically on statin therapy Status: Chronic (8) Hypertension: Chronically on amlodipine Status: Chronic Qualifiers: Hypertension type: essential hypertension Qualified Code(s): I10 - Essential (primary) hypertension (9) Hypothyroidism: Chronically on levothyroxine Status: Chronic Qualifiers: Hypothyroidism type: unspecified Qualified Code(s): E03.9 - Hypothyroidism, unspecified (10) Urinary tract infection: Continue Rocephin Urine culture gram-negative rods Status: Acute Additional A&P Information SCDs for DVT prophylaxis, pharmacological prophylaxis contraindicated in setting of anemia with heme positive stool, requiring transfusion and known colon cancer Supportive care otherwise I have requested records from Dr. Yomi Dan and Dr. Jorge Ortiz whom she has seen previously Confirmed with patient she is a full code Attestations Medical Necessity Statement*: Patient requires hospitalization for small bowel obstruction, anemia, UTI Coding Level of Care Code Acute Data Warehouse Specialist for Chg Fwd Diagnoses Small bowel obstruction K56.609 Anemia D50.0 Anemia type: iron deficiency Iron deficiency anemia type: chronic blood loss Cancer of sigmoid colon C18.7 Status post colostomy Z93.3 Nephrostomy status Z93.6 Protein calorie malnutrition E43 Protein-calorie malnutrition severity: severe Hypercholesterolemia E78.00 Hypertension I10 Hypertension type: essential hypertension Hypothyroidism E03.9 Hypothyroidism type: unspecified Urinary tract infection N39.0
[2020-12-02] MEDS: enoxaparin 40 mg/0.4 mL Syringe SUBCUT (16:13)
[2020-12-02] MEDS: lactulose oral liq 20 gm/30 mL UDC 10 GM PO (16:13)
[2020-12-02] MEDS: magnesium citrate Btl 296 mL PO (18:38)
[2020-12-02] MEDS: iron sucrose 200 MG in sodium chloride 0.9% (100 ml) 100 ML 220 MG IV (18:38)
[2020-12-02] MEDS: ondansetron 2 mg/ML SDV 2 mL 4 MG IVP (18:45)
--- NOTE | 2020-12-02 20:25 | PC.NURSE ---
Catheter Left nephrostomy tube draining into zhou leg bag, unable to chart properly on assessment as nephrostomy tube.
[2020-12-03 00:13] VITALS: BP 114/65; PULSE 66; RESP 18; TEMP 36.9; O2SAT 95
[2020-12-03] MEDS: sodium chloride 0.9% 1,000 ML 75 ML IV (01:44)
[2020-12-03] MEDS: lactulose oral liq 20 gm/30 mL UDC 10 GM PO (01:45)
[2020-12-03 01:50] VITALS: RESP 16
[2020-12-03] MEDS: morphine 4 mg/mL SDV 1 mL 2 MG IVP (01:50)
[2020-12-03 04:52] VITALS: BP 120/61; PULSE 68; RESP 18; TEMP 37.1; O2SAT 94
[2020-12-03 06:00] LABS: Basophils % 0.4 %; Eosinophils # 0.1 10^3/uL (0.0-0.8); Eosinophils % 0.6 %; Hematocrit 26.9 % (37.0-47.0); Hemoglobin 8.2 g/dL (11.5-15.3); Mean Corpuscular HGB Conc 30.5 g/dL (30.0-36.0); Mean Corpuscular Hemoglobin 25.3 pg (28.0-34.0); Monocytes # 0.5 10^3/uL (0.2-0.9); Monocytes % 5.7 %; Neutrophils # 6.77 10^3/uL (1.8-7.7); Neutrophils % 71.8 %; Nucleated Red Blood Cells % 0 %; Platelet Count 257 10^3/cmm (130-400); Red Blood Count 3.24 10^6/uL (4.1-5.3); Red Cell Distribution Width 19.6 % (12.1-15.1); White Blood Count 9.4 10^3/uL (4.0-10.0)
[2020-12-03] MEDS: sucralfate 1 gm/10 mL Oral Liq UDC PO ×2 (06:02→11:12)
[2020-12-03 06:25] LABS: Alanine Aminotransferase 9 U/L (0-33); Albumin Level 2.7 g/dL (3.5-5.2); Alkaline Phosphatase 75 IU/L (35-105); Anion Gap 10.2 (5-19); Aspartate Amino Transferase 12 U/L (0-32); Blood Urea Nitrogen 11 mg/dL (8-23); Calcium 8.3 mg/dL (8.5-10.5); Carbon Dioxide 23 mmol/L (22-29); Chloride 106 mmol/L (98-107); Globulin 2.6 g/dL (1.3-4.6); Glucose 86 mg/dL (65-115); Magnesium 1.8 mg/dL (1.7-2.3); Osmolality Calculated 281 mOsm/kg (285-295); Phosphorus 2.4 mg/dL (2.5-4.5); Potassium 3.2 mmol/L (3.5-5.1); Sodium 136 mmol/L (136-145); Total Bilirubin 0.5 mg/dL (0.15-1.2); Total Protein 5.3 g/dL (6.6-8.7)
[2020-12-03 07:37] VITALS: BP 113/56; PULSE 61; RESP 18; TEMP 36.3; O2SAT 95
--- NOTE | 2020-12-03 09:18 | PC.SOCIAL ---
*IMM* Patient received IMM. Initialled and placed in Chart.
--- NOTE | 2020-12-03 11:03 | P.DS_ITS ---
Discharge Providers Date of Admission: 11/30/20 21:25 Date of Discharge: December 03, 2020 Attending Provider at Admission: Disha Myrick MD Attending Provider at Discharge: Saurabh Orozco MD Diagnoses at Discharge Discharge Diagnosis (1) Small bowel obstruction: Status: Acute (2) Anemia: Status: Acute Qualifiers: Anemia type: iron deficiency Iron deficiency anemia type: chronic blood loss Qualified Code(s): D50.0 - Iron deficiency anemia secondary to blood loss (chronic) (3) Cancer of sigmoid colon: Status: Chronic (4) Status post colostomy: Status: Chronic Permanent problem details: Transverse loop, done secondary to obstructive lesion (5) Nephrostomy status: Status: Chronic Permanent problem details: Left-sided, placed secondary to obstructive lesion (6) Protein calorie malnutrition: Status: Chronic Qualifiers: Protein-calorie malnutrition severity: severe Qualified Code(s): E43 - Unspecified severe protein-calorie malnutrition (7) Hypercholesterolemia: Status: Chronic (8) Hypertension: Status: Chronic Qualifiers: Hypertension type: essential hypertension Qualified Code(s): I10 - Essential (primary) hypertension (9) Hypothyroidism: Status: Chronic Qualifiers: Hypothyroidism type: unspecified Qualified Code(s): E03.9 - Hypothyroidism, unspecified (10) Urinary tract infection: Status: Acute Reason for Visit Reason for Visit: abd pain/has colon cancer Hospital Course Hospital Course This is a 75-year-old female with a past medical history of cancer of the sigmoid colon status post sigmoid resection, with evidence of reoccurrence with repeat surgical resection, currently colostomy in place, with nephrostomy in place, currently managed by Dr. Ortiz in [facility], acute on chronic anemia, hypertension, hypercholesterolemia, hypothyroidism who presents to [facility] due to decreased colostomy output Small bowel obstruction: related to adhesions -Status post colectomy resection of sigmoid colon cancer a year ago, with PET scan evidence of recurrence, no known metastatic disease -Subsequently had resection of recurrent mass, adhered to pelvic wall, with lysis of adhesions -Currently in the process of undergoing chemotherapy -CT scan of the abdomen pelvis shows: -1. Status post distal colectomy and colostomy. 2. Multiple dilated small bowel loops with air-fluid levels. The distal small bowel has an empty, decompressed appearance. Findings are consistent with small bowel obstruction. No ischemic change or perforation noted. Patient was admitted to [facility] for small bowel obstruction related to adhesions, kept n.p.o., IV fluids, NG tube. Patient clinical status improved, colostomy output improved, symptomatology improved, transition to clear liquid diet, clinically tolerated it well. Discharged on instructions to advance diet as tolerated, lactulose as needed, monitor for worsening abdominal pain, decreased colostomy output. Anemia: -Seems like acute on chronic anemia, she tells me that she was transfused with blood roughly a year ago when she was in [place] -Hemoglobin was 6.8 on admission, received a unit 1 PRBC -Iron studies show severe iron deficiency anemia -Received 3 days of IV Venofer -Discharged on ferrous sulfate Cancer of sigmoid colon: -Status post sigmoid resection -Now according to patient with evidence of reoccurrence on PET scan, no evidence of metastatic disease -Subsequently have resection of mass at anastomosis site, adherent to the pelvic wall, with lysis of adhesions -Did have complaints of sudden weakness and shortness of breath, not requiring any oxygen, no chest pain -But given history of cancer, no evidence of recurrence, need to rule out pulmonary emboli, will order CT angiogram of the chest, CT angiogram of the chest negative for PE -Patient's shortness of breath improved, clinically improved For UTI, discharged on Augmentin, urine culture pending on discharge, should be followed up with primary care physician as outpatient Physical Exam Const: COMMON NORMALS: no acute distress and patient oriented x3 HENMT: COMMON NORMALS: normocephalic HEAD & SCALP: normocephalic Neck/C-Spine: COMMON NORMALS: no JVD Resp: COMMON NORMALS: normal respiratory effort, No retractions, No use of accessory muscles and clear to auscultation bilaterally AUSCULTATION: clear to auscultation bilaterally Cardio: COMMON NORMALS: no JVD, regular rate, regular rhythm, S1 normal heart sound present and S2 normal heart sound present RATE: regular rate RHYTHM: regular rhythm HEART SOUNDS: S1 normal heart sound present and S2 normal heart sound present GI: COMMON NORMALS: Normal to inspection, nondistended, normoactive bowel sounds present, Soft to palpation, non-tender, No hepatosplenomegaly present, no masses and no bruits PALPATION: Yes Soft to palpation and Yes No hepatosplenomegaly present Extremity: COMMON NORMALS: capillary refill normal, no clubbing, cyanosis or edema, no calf tenderness and no pedal edema Neuro: COMMON NORMALS: patient oriented x3 Psych: COMMON NORMALS: mental status grossly normal Urinary Catheter Management^: Irizarry: Cath Placed During This Visit: no Reason for Continuing Indwelling Catheter: Chronic Indwelling Urinary Catheter on Admission Discharge Data Data Completed and Pending: Completed Studies During Hospitalization Category Date Time Status CT abdomen pelvis w con* [id number] Urge nt Cat Scan 11/30/20 19:[address] angio chest PE protcl [id number] Rout ine Cat Scan 12/01/20 12:33 Completed CXRP [XR chest 1V portable [id number]] S tat Exams 12/02/20 05:49 Completed XR KUB portable 7 [id number] Routine Exams 12/01/20 06:00 Completed XR abdomen min 2V [id number] Routine Exams 12/02/20 06:00 Completed Pending at discharge Category Date Time Status Complete Blood Co unt w/Auto AM LABS Lab 12/04/20 04:00 Ordered Complete Blood Co unt w/Auto AM LABS Lab 12/05/20 04:00 Ordered Comprehensive Met abolic Panel AM LA BS Lab 12/04/20 04:00 Ordered Magnesium AM LABS Lab 12/04/20 04:00 Ordered Phosphorus AM LAB S Lab 12/04/20 04:00 Ordered Urine Culture [place] Lab 12/01/20 05:15 Results Labs from last 24 hours 12/03/20 12/03/20 12/01/20 05:02 05:02 05:15 WBC 9.4 RBC 3.24 L Hgb 8.2 L Hct 26.9 L MCV 83.0 MCH 25.3 L MCHC 30.5 RDW 19.6 H Plt Count 257 MPV 9.0 Neut % (Auto) 71.8 Lymph % (Auto) 21.0 [place] % (Auto) 5.7 Eos % (Auto) 0.6 Baso % (Auto) 0.4 Neut # (Auto) 6.77 Lymph # (Auto) 2.0 [place] # (Auto) 0.5 Eos # (Auto) 0.1 Baso # (Auto) 0.0 Nucleated RBC % (a uto) 0 Nucleated RBCs # 0.0 Sodium 136 Potassium 3.2 L Chloride 106 Carbon Dioxide 23 Anion Gap 10.2 BUN 11 Creatinine 0.9 GFR Calculation Not Reportable Glucose 86 Calculated Osmolal ity 281 L Calcium 8.3 L Phosphorus 2.4 L Magnesium 1.8 Total Bilirubin 0.5 AST 12 ALT 9 Alkaline Phosphata se 75 Total Protein 5.3 L Albumin 2.7 L Globulin 2.6 Urine Color Yellow Urine Appearance Cloudy Urine pH 8 H Ur Specific Gravit y 1.010 Urine Protein 3+ H Urine Glucose (UA) Norm Urine Ketones Negative Urine Blood 3+ H Urine Nitrate Negative Urine Bilirubin Neg Prot Sulfosalicyli c Acd Positive Urine Urobilinogen Norm Ur Leukocyte Sara ase 2+ H Urine RBC 5-10 H Urine WBC >100 H Ur Squamous Epith Cells 5-10 H Urine Bacteria 3+ H Vitals: Last Vital Signs Temp 97.3 F L 12/03/20 07:37 Pulse 61 12/03/20 07:37 Resp 18 12/03/20 07:37 BP 113/56 12/03/20 07:37 Pulse Ox 95 12/03/20 07:37 Discharge Plan Discharge Patient Disposition: Home Condition: Stable Prescriptions: New lactulose 20 gram/30 mL Solution 10 g PO Q12H PRN (Reason: constipation) Qty: 1200 RF: 0 Augmentin 875-125 mg tablet 1 tab PO BID 4 Days Qty: 8 RF: 0 ferrous sulfate 325 mg (65 mg iron) tablet 325 mg PO DAILY 30 Days Qty: 30 RF: 0 Continued pravastatin 40 mg Tablet 40 mg PO DAILY@08 RF: 0 Norvasc 5 mg Tablet 5 mg PO DAILY@08 RF: 0 Tylenol Extra Strength 500 mg Tablet 1,000 mg PO PRN RF: 0 levothyroxine 75 mcg Tablet 75 mcg PO DAILY@08 RF: 0 esomeprazole magnesium [Nexium] 20 mg Capsule,Delayed Release(Dr/Ec) 20 - 40 mg PO DAILY PRN (Reason: unknown) RF: 0 Discharge Orders: Discharge Order (Routine); Ordered 12/03/20 Ordered By: Saurabh Orozco Referrals: Jorge Ortiz MD [Referring] - ([phone] Call on Sunday to be seen on the next avaliable appointment. ) Discharge Diet: Advance as tolerated Discharge Activity: Resume usual activity Patient Instructions: Iron Supplements (By mouth), Amoxicillin/Clavulanate Potassium (By mouth), Lactulose (By mouth), Colostomy Care (DC), Urinary Tract Infection in Women (GEN) Discharge Attestations Time Spent in Discharge Care*: less than 30 min Quality Metrics Clinical Quality Measures During this hospital stay, did patient experience: None Coding Level of Care Code Acute Tennis Player for Chg Fwd Exam Comprehensive Diagnoses Small bowel obstruction K56.609 Anemia D50.0 Anemia type: iron deficiency Iron deficiency anemia type: chronic blood loss Cancer of sigmoid colon C18.7 Status post colostomy Z93.3 Nephrostomy status Z93.6 Protein calorie malnutrition E43 Protein-calorie malnutrition severity: severe Hypercholesterolemia E78.00 Hypertension I10 Hypertension type: essential hypertension Hypothyroidism E03.9 Hypothyroidism type: unspecified Urinary tract infection N39.0
[2020-12-03] MEDS: levothyroxine 150 mcg Tablet 75 MCG PO (11:11)
[2020-12-03] MEDS: cefTRIAXone 1,000 MG in sodium chloride 0.9% (plus) 50 ML 100 MG IV (11:12)
[2020-12-03] MEDS: pantoprazole DR 40 mg Tablet PO (11:12)
[2020-12-03 11:54] VITALS: BP 110/57; PULSE 74; RESP 18; TEMP 36.9; O2SAT 94
[2020-12-03 14:45] VITALS: BP 110/57; PULSE 74; RESP 18; TEMP 36.9; O2SAT 94
== END 2020-12-03 14:47 | disposition home or self-care (01) | DRG 388 ==
LOC: ER 21:23 → MEDSURG 23:41
PROVIDERS: Admitting Provider Hospitalist; Emergency Provider Emergency Medicine; Visit Provider Family Medicine
DX: K56.50 Intestinal adhesions [bands], unspecified as to partial versus complete obstruction (principal); E43 Unspecified severe protein-calorie malnutrition; C18.7 Malignant neoplasm of sigmoid colon; Z68.1 Body mass index [BMI] 19.9 or less, adult; R18.8 Other ascites; E87.1 Hypo-osmolality and hyponatremia; N39.0 Urinary tract infection, site not specified; Z90.49 Acquired absence of other specified parts of digestive tract; Z93.3 Colostomy status; Z93.6 Other artificial openings of urinary tract status; K44.9 Diaphragmatic hernia without obstruction or gangrene; E78.00 Pure hypercholesterolemia, unspecified; I10 Essential (primary) hypertension; E03.9 Hypothyroidism, unspecified; D50.0 Iron deficiency anemia secondary to blood loss (chronic); R73.9 Hyperglycemia, unspecified; E86.0 Dehydration
CPT/HCPCS: 12345; 36415; 36430; 71045; 71275; 74018; 74019; 74177; 80048; 80053; 81001; 82274; 82728; 83036; 83540; 83550; 83690; 83735; 84100; 84443; 85025; 85045; 85610; 85730; 86850; 86900; 86920; 87077; 87086; 87186; 96372; 99283; J0696; J1650; J1756; J2060; J2270; J2405; J3490; J7030; P9016; Q9967